=== PATIENT | male | born 1970 | race Caucasian/White ===

== ENCOUNTER 2021-03-09 09:44 | Emergency (ER) | payer OTHER, SELFPAY ==
[2021-03-09] VITALS (7 sets, daily range): BP systolic 142–171; BP diastolic 93–106; PULSE 67–79; RESP 16–20; TEMP 36.3; O2SAT 95–98; BMI 24.3
--- NOTE | 2021-03-09 | CTR_ITS ---
[facility] Final Radiology Report Call: [phone] assistance Online chat: [email or web address] Name: ODILON LAMAR Age: 50Years M Date: 03/09/2021 SSN: -- : [id number] Study: CT ABDOMEN/PELVIS W Requesting Physician: GEORGI SAL Images: 227 Add?l Studies: Provided Clinical History: Procedure Accession CTDI Vol (mGy) DLP (mGy-cm) PROCEDURE INFORMATION: Exam: CT Abdomen And Pelvis With Contrast Exam date and time: 03/09/2021 2:25 PM Age: 50 years old Clinical indication: Pain; Other: Anal TECHNIQUE: Imaging protocol: Computed tomography of the abdomen and pelvis with contrast. Radiation optimization: All CT scans at this facility use at least one of these dose optimization techniques: automated exposure control; mA and/or kV adjustment per patient size (includes targeted exams where dose is matched to clinical indication); or iterative reconstruction. Contrast material: OMNI 300; Contrast volume: 95 ml; Contrast route: INTRAVENOUS (IV); COMPARISON: No relevant prior studies available. RADIATION DOSE METRICS: Total DLP (mGy-cm): 1191.26 FINDINGS: Liver: Subcentimeter low-attenuation lesion within hepatic segment 7 , too small to characterize on CT, likely a small cyst or hemangioma. There is an additional subcentimeter foci in segment 4. Gallbladder and bile ducts: Normal. No calcified stones. No ductal dilation. Pancreas: Normal. No ductal dilation. Spleen: Normal. No splenomegaly. Adrenal glands: Normal. No mass. Kidneys and ureters: Normal. No hydronephrosis. Stomach and bowel: Unremarkable. No obstruction. No mucosal thickening. Appendix: No evidence of appendicitis. Intraperitoneal space: Unremarkable. No free air. No significant fluid collection. Vasculature: Unremarkable. No abdominal aortic aneurysm. Lymph nodes: Unremarkable. No enlarged lymph nodes. Urinary bladder: Unremarkable as visualized. Reproductive: Unremarkable as visualized. Bones/joints: Unremarkable. No acute fracture. Soft tissues: There is a 3.0 x 2.3 cm fluid collection situated within the right ischioanal fossa abutting the right gluteal cleft. IMPRESSION: 3 cm fluid collection situated within the right ischiaoanal fossa. Imaging appearance is suspicious for perianal fistula and abscess formation in the appropriate clinical context. This can be further delineated with MRI of the pelvis as clinically indicated. Thank you for allowing us to participate in the care of your patient. Dictated and Authenticated by: Rickey Jain DO 03/09/2021 3:08 PM Central Time ([place] & Bk) NIURKA
--- NOTE | 2021-03-09 13:50 | W.ED.SKABFB ---
HPI - Skin/Abscess/Foreign Bdy General: Chief complaint: Skin/Abscess/Foreign Body Stated complaint: Anal abscess Time Seen by Provider: 03/09/21 13:34 History of Present Illness: HPI narrative: 50-year-old male presents emergency room complaining of perirectal abscess. Several years ago he had similar episode in the same area as it was incised and drained by Dr. Go. This began a couple days ago he took some oral antibiotics that he had been prescribed previously does not seem to be improving he is not had any fever sweats chills or no drainage. MD complaint: abscess/boil Onset (ago): day(s) Location: buttocks (Perirectal) Severity: severe Quality: sharp and constant Pain Consistency: constant Relieving factors: none Exacerbating factors: other (Sitting\pressure) Associated symptoms: Deny arthralgias, chills, cough, fever(s), itching, myalgias, nausea, rigidity, short of breath or vomiting Treatments prior to arrival: antibiotic Review of Systems Const: Denies: fever(s) or chills ENMT: Denies: throat pain, ear or mastoid pain, nasal discharge or nasal congestion Card: Denies: chest pain, edema, dyspnea on exertion or orthopnea Resp: Denies: dyspnea, productive cough or non-productive cough GI: Denies: nausea or vomiting : Denies: flank pain, dysuria, urinary frequency or urinary urgency Skin/Breast: Denies: rash or pruritus Physical Exam Const: COMMON NORMALS: no acute distress GENERAL APPEARANCE: cooperative and comfortable ORIENTATION/CONSCIOUSNESS: Yes awake, Yes oriented to person, Yes oriented to place and Yes oriented to time HENMT: COMMON NORMALS: normocephalic, atraumatic and hearing grossly normal bilaterally HEAD & SCALP: normocephalic and atraumatic Neck/C-Spine: COMMON NORMALS: no JVD Resp: COMMON NORMALS: normal respiratory effort, No retractions, No use of accessory muscles and clear to auscultation bilaterally AUSCULTATION: clear to auscultation bilaterally Cardio: COMMON NORMALS: no JVD, regular rate, regular rhythm and No murmurs present (Cardio) RATE: regular rate RHYTHM: regular rhythm GI: COMMON NORMALS: Soft to palpation and No hepatosplenomegaly present AUSCULTATION: Yes normoactive bowel sounds PALPATION: Yes Soft to palpation, No Tenderness to palpation present (GI), No Guarding due to palpation present (GI) and Yes No hepatosplenomegaly present OTHER: Perirectal abscess at the 6 o'clock position patient will not tolerate exam. It is below the subdermal tissue but mildly palpable. There is no localized erythema or induration. Extremity: COMMON NORMALS: normal to inspection, capillary refill normal, no clubbing, cyanosis or edema, no calf tenderness and no pedal edema Neuro: SENSORIUM/ORIENTATION: Yes oriented to person, Yes oriented to place and Yes oriented to time Skin: COMMON NORMALS: no rashes or lesions noted GENERAL SKIN EXAM: no rashes or lesions noted Course Vital Signs: Vital signs: Vital Signs Temperature 97.3 F L 03/09/21 09:47 Pulse Rate 79 03/09/21 16:13 Respiratory Rate 16 03/09/21 15:52 Blood Pressure 142/93 03/09/21 16:13 Pulse Oximetry 98 03/09/21 16:13 MDM - Skin/Abscess/Foreign Bdy MDM Narrative: Medical decision making narrative: Perirectal abscess. Wearing Goeden discharge patient home he is not septic at this point was determined Augmentin given hydrocodone for pain sitz bath's talk to Dr. aOkley he will see the patient tomorrow he patient is asked to be n.p.o. anticipate taking to the OR in the morning as an outpatient for incision and drainage. The abscess itself is too deep to be addressed with local anesthetic. Discussed the patient he understands plan and is agreeable. Lab Data: Labs: Lab Results 03/09/21 03/09/21 03/09/21 Range/Units 14:07 14:07 14:40 WBC 13.3 H (4.0-10.0) 10^3/ uL RBC 4.70 (4.1-5.3) 10^6/u L Hgb 15.3 (11.7-16.6) g/dL Hct 45.2 (42.0-52.0) % MCV 96.2 H (80-94) fL MCH 32.6 (28.0-34.0) pg MCHC 33.8 (30.0-36.0) g/dL RDW 12.2 (12.1-15.1) % Plt Count 245 (130-400) 10^3/c mm MPV 11.6 H (7.4-10.4) fL Neut % (Auto) 70.6 % Lymph % (Auto) 18.1 % [place] % (Auto) 8.6 % Eos % (Auto) 1.9 % Baso % (Auto) 0.6 % Neut # (Auto) 9.37 H (1.8-7.7) 10^3/u L Lymph # (Auto) 2.4 (0.8-4.8) 10^3/u L [place] # (Auto) 1.1 H (0.2-0.9) 10^3/u L Eos # (Auto) 0.3 (0.0-0.8) 10^3/u L Baso # (Auto) 0.1 (0.0-0.1) 10^3/u L Nucleated RBC % (a uto) 0 % Nucleated RBCs # 0.0 /100WBC Sodium 137 (136-145) mmol/L Potassium 4.1 (3.5-5.1) mmol/L Chloride 101 (98-107) mmol/L Carbon Dioxide 27 (22-29) mmol/L Anion Gap 13.1 (5-19) BUN 8 (6-20) mg/dL Creatinine 0.7 (0.7-1.2) mg/dL GFR Calculation 120.4 (90-130) mL/min Glucose 87 (65-115) mg/dL Calculated Osmolal ity 282 L (285-295) mOsm/k g Calcium 8.8 (8.5-10.5) mg/dL Lipase 16 (13-60) U/L Urine Color Yellow (Yellow) Urine Appearance Clear (CLEAR) Urine pH 5 (5-7) Ur Specific Gravit y 1.020 (1.005-1.030) Urine Protein Neg (Negative) Urine Glucose (UA) Norm (Normal) Urine Ketones 1+ H (Negative) Urine Blood 2+ H (Negative) Urine Nitrate Negative (Negative) Urine Bilirubin Neg (Negative) Urine Urobilinogen Norm (Negative) mg/dL Ur Leukocyte Razia ase Negative (Negative) Urine RBC 0-4 H (0-2) /hpf Urine WBC Rare (0-5) /hpf Ur Squamous Epith Cells None (0-5) /hpf Amorphous Sediment Not Reportable Urine Bacteria 1+ H (NONE) /hpf Hyaline Casts 0-4 H /lpf Urine Mucus 1+ /hpf Discharge Plan Discharge Patient Disposition: Home Clinical Impression: Abscess, perirectal Condition: Stable Prescriptions: New Augmentin 875-125 mg tablet 1 tab PO BID Qty: 20 RF: 0 hydrocodone-acetaminophen 5-325 mg tablet 1 tab PO Q6H PRN (Reason: pain) Qty: 20 RF: 0 No Action atorvastatin 20 mg Tablet 20 mg PO DAILY RF: 0 amlodipine 5 mg Tablet 5 mg PO DAILY RF: 0 metoprolol succinate 25 mg Tablet Extended Release 24 Hr 25 mg PO DAILY RF: 0 Discharge Orders: Discharge ED (Routine); Ordered 03/09/21 Ordered By: Ranulfo Kerr Discharge Diet: Clear Liquid Discharge Activity: Limit activity as instructed Patient Instructions: Opioid Safety Activity Restrictions/Additional Instructions: His management will call to make arrangements for a consult with surgery. Coding Level of Care Code ED Reaming Machine Operator For Plastic for Chuy Fwd Exam Comprehensive
[2021-03-09] MEDS: morphine 4 mg/mL SDV 1 mL IVP ×2 (14:02→15:52)
[2021-03-09] MEDS: ondansetron 2 mg/ML SDV 2 mL 4 MG IVP ×2 (14:03→15:54)
[2021-03-09] MEDS: sodium chloride 0.9% 1,000 ML 999 ML IV (14:04)
[2021-03-09 14:22] LABS: Basophils # 0.1 10^3/uL (0.0-0.1); Basophils % 0.6 %; Eosinophils # 0.3 10^3/uL (0.0-0.8); Eosinophils % 1.9 %; Hematocrit 45.2 % (42.0-52.0); Hemoglobin 15.3 g/dL (11.7-16.6); Lymphocytes # 2.4 10^3/uL (0.8-4.8); Lymphocytes % 18.1 %; Mean Corpuscular HGB Conc 33.8 g/dL (30.0-36.0); Mean Corpuscular Hemoglobin 32.6 pg (28.0-34.0); Mean Corpuscular Volume 96.2 fL (80-94); Mean Platelet Volume 11.6 fL (7.4-10.4); Monocytes # 1.1 10^3/uL (0.2-0.9); Monocytes % 8.6 %; Neutrophils # 9.37 10^3/uL (1.8-7.7); Neutrophils % 70.6 %; Nucleated Red Blood Cells % 0 %; Platelet Count 245 10^3/cmm (130-400); Red Cell Distribution Width 12.2 % (12.1-15.1); White Blood Count 13.3 10^3/uL (4.0-10.0)
[2021-03-09] MEDS: iohexol 300 mg/mL 100 mL Btl IV (14:31)
[2021-03-09 14:35] LABS: Anion Gap 13.1 (5-19); Blood Urea Nitrogen 8 mg/dL (6-20); Calcium 8.8 mg/dL (8.5-10.5); Carbon Dioxide 27 mmol/L (22-29); Chloride 101 mmol/L (98-107); Glomerular Filtration Rate 120.4 mL/min (90-130); Glucose 87 mg/dL (65-115); Lipase 16 U/L (13-60); Osmolality Calculated 282 mOsm/kg (285-295); Potassium 4.1 mmol/L (3.5-5.1); Sodium 137 mmol/L (136-145)
[2021-03-09 15:00] LABS: Add Urine Culture? No; Add Urine Microscopic? YES; Bacteria Urine 1+ /hpf; Bilirubin Urine Neg (Negative); Blood Urine 2+ (Negative); Glucose Urine UA Norm (Normal); Hyaline Casts Urine 0-4 /lpf; Ketones Urine 1+ (Negative); Leukocyte Esterase Urine Negative (Negative); Mucus Urine 1+ /hpf; Nitrate Urine Negative (Negative); Protein Urine Neg (Negative); RBC Urine 0-4 /hpf (0-2); Urine Appearance Clear (CLEAR); Urine Color Yellow (Yellow); Urobilinogen Urine Norm (Negative); WBC Urine RARE /hpf (0-5); pH Urine 5 (5-7)
== END 2021-03-09 16:50 | disposition home or self-care (01) ==
PROVIDERS: Emergency Provider Family Medicine
DX: K61.1 Rectal abscess (principal)
CPT/HCPCS: 74177; 80048; 81001; 83690; 85025; 96361; 96374; 96375; 99284; J2270; J2405; J7030; Q9967

== ENCOUNTER 2021-03-10 11:12 | Day surgery (SDC) | payer OTHER, SELFPAY ==
[2021-03-09 17:55] VITALS: BMI 24.3
[2021-03-10] VITALS (14 sets, daily range): BP systolic 69–148; BP diastolic 38–96; PULSE 65–86; RESP 12–24; TEMP 36.3–37.7; O2SAT 94–98
[2021-03-10] MEDS: sodium chloride 0.9% 1,000 ML 30 ML IV (12:57)
--- NOTE | 2021-03-10 14:07 | ANES.PREANE2 ---
Pre-Anesthetic Assessment Pre-Anesthetic Assessment: Height/Weight: Height 1.75 m Weight 74.843 kg Temp Pulse Resp BP Pulse Ox 97.7 F 77 18 145/96 97 03/10/21 12:17 03/10/21 12:17 03/10/21 12:17 03/10/21 12:17 03/10/21 12:17 Proposed Procedure: Operation Date: 03/10/21 13:10 Proposed Procedures p Exam Under Anesthesia 28718 K61.1(Not Applicable) - Gerardo Dixon MD s INCISION AND DRAINAGE OF RIGHT PERIANAL ABSCESS 64035 K61.1(Right) - Gerardo Dixon MD Was Beta Doug taken within 24 hours: Yes Was Clonidine taken within 24 hours: N/A Social: Social History: Tobacco and No alcohol Exam: Pre-Anes Outpt Exam: alert, oriented x 3, clear to auscultation bilaterally and regular rate & rhythm Airway: Submandibular: WNL Cervical ROM: WNL MP: 2 Dentition: Full CV/HEM: CV/HEM: HTN Metabolic: Metabolic: Hyperlipidemia Anesthetic Plan: ASA status: 2 Anesthesia: General Risk of > 500 ml blood loss (7ml/kg in children): No Meds/Allergies Current Medications: Current Medications Generic Name Dose Route Start Last Admin Trade Name Freq PRN Reason Stop Dose Admin Sodium Chloride 1,000 mls @ 30 ml s/hr 03/10/21 12:00 03/10/21 12:57 Sodium Chloride 0.9% IV 03/11/21 11:59 30 mls/hr .Q24H LUC Administration Data Anesthesia Cardiac Studies: No Data to Display
[2021-03-10] MEDS: fentaNYL 50 mcg/mL INJ 2mL IVP ×2 (16:40→18:14)
--- NOTE | 2021-03-10 18:52 | P.HP_ITS ---
Providers/Chief Complaint Primary Care Provider: FELIPE Patricio Chief Complaint: INCISION AND DRAINAGE OF RIGHT PERIANAL ABSCESS History of Present Illness Chief Complaint: Bottom hurts History of present illness: Junito Granda is a 50 year old male presents with worsening right perianal discomfort started around 01 March that got worse over the past 3 days associated with chills but no fevers nausea or vomiting or any other associated symptoms patient reports about 4 years ago had an I&D at the same spot and subsequently he is familiar with the pathology, he really reports no history of other medical conditions and he never had a colonoscopy before. Patient was seen in the emergency department yesterday and was sent home on oral antibiotics and pain medications with the plan for I&D today in the OR. Patient undergone undergone a CT scan of the abdomen and pelvis; Liver: Subcentimeter low-attenuation lesion within hepatic segment 7 , too small to characterize on CT, likely a small cyst or hemangioma. There is an additional subcentimeter foci in segment 4. Gallbladder and bile ducts: Normal. No calcified stones. No ductal dilation. Pancreas: Normal. No ductal dilation. Spleen: Normal. No splenomegaly. Adrenal glands: Normal. No mass. Kidneys and ureters: Normal. No hydronephrosis. Stomach and bowel: Unremarkable. No obstruction. No mucosal thickening. Appendix: No evidence of appendicitis. Intraperitoneal space: Unremarkable. No free air. No significant fluid collection. Vasculature: Unremarkable. No abdominal aortic aneurysm. Lymph nodes: Unremarkable. No enlarged lymph nodes. Urinary bladder: Unremarkable as visualized. Reproductive: Unremarkable as visualized. Bones/joints: Unremarkable. No acute fracture. Soft tissues: There is a 3.0 x 2.3 cm fluid collection situated within the right ischioanal fossa abutting the right gluteal cleft. IMPRESSION: 3 cm fluid collection situated within the right ischiaoanal fossa. Imaging appearance is suspicious for perianal fistula and abscess formation in the appropriate clinical context. This can be further delineated with MRI of the pelvis as clinically indicated. Review of Systems General: Reports: 10 or more systems reviewed and unremarkable except in HPI and below Medications/Allergies Home Medications Medication Instructions Recorded Confirmed Last Taken Type amlodipine 5 mg PO DAILY 03/09/21 03/10/21 03/09/21 History amoxicillin-pot clavulanate 1 tab PO BID #20 tab 03/09/21 03/10/21 03/10/21 Rx [Augmentin] atorvastatin 20 mg PO DAILY 03/09/21 03/10/21 03/09/21 History hydrocodone-acetaminophen 1 tab PO Q6H PRN #20 tab 03/09/21 03/10/21 03/10/21 Rx metoprolol succinate 25 mg PO DAILY 03/09/21 03/10/21 03/09/21 History Allergies Allergy/AdvReac Type Severity Reaction Status Date / Time No Known Allergies Allergy Unverified 03/09/21 14:45 Vitals/I&O/Wt Last Vital Signs Temp 97.7 F 03/10/21 12:17 Pulse 80 03/10/21 16:30 Resp 18 03/10/21 18:14 BP 140/88 03/10/21 16:30 Pulse Ox 96 03/10/21 18:14 Weight last 48 hrs Weight 165 lb Physical Exam Narrative: EXAM NARRATIVE: Patient is conscious alert oriented X3 BMI 24.4 Head and neck examination PERRLA no masses no cervical lymphadenopathy no jaundice Cardiac examination audible S1-S2 no murmurs no gallops no arrhythmias Chest is clear bilateral,abscence of Rhonchi or wheezes,no surgical emphysema Abdomen nontender nondistended soft no organomegaly guarding or rigidity/no signs of peritonitis Extremities no cyanosis no clubbing no edema Right perianal abscess measures about 2 x 2 cm A&P Assessment and plan (1) Abscess, perirectal: After thorough history physical examination reviewing the chart and images of the CT scan of the abdomen and pelvis with my personal interpretation. I did application counselor the patient for examination under anesthesia with incision and drainage of right perianal abscess. Indications, risks, benefits and alternatives all discussed with the patient did agree to proceed accordingly understanding the potential risk of partial or complete incontinence. And may require future potential surgical interventions and may develop perianal fistula if already did not exist. So patient will benefit from down the road colonoscopy. Informed consent per chart Status: Acute Attestations Medical Necessity Statement*: Outpatient Time Spent in Patient Care: (>than 50% of time spent in counselling and/or direct pt care on unit) . Coding Level of Care Code Acute Animal Assisted Therapist for Chg Fwd Diagnoses Abscess, perirectal K61.1
[2021-03-10] MEDS: acetaminophen 1,000 MG/100 ML PIGGYBACK 400 MG IV (19:04)
[2021-03-10] MEDS: piperacillin-tazobactam 3.375 GM in sodium chloride 0.9% (plus) 50 ML IV (19:13)
[2021-03-10] MEDS: lidocaine 2% INJ 20 mL XX (19:31)
--- NOTE | 2021-03-10 19:43 | PM.OP ---
Operative Report Date of procedure: March 10, 2021 Pre-op Diagnosis: Right perianal abscess Post-op diagnosis: same Post-op Diagnosis: No evidence of perianal fistulae Post-op Findings: Right perianal abscess more towards the posterior midline Tunneling of the abscess cavity 2 x 2 x 4 cm towards the anal canal Procedure Done: Examination under anesthesia and incision and drainage of right perianal abscess. Sharp debridement of the abscess cavity Implants: 1 inch Nu Gauze for packing Specimens removed/disposition: Swabs for cultures and sensitivities Surgeon: Gerardo Dixon Maple Syrup Maker: manager technology Danita Circulating nurse Trudy Anesthesia: General (LMA lead fabricator Ofelia) Estimated blood loss (mL): 10 Condition: stable Disposition: same day Brief History: Symptomatic perianal abscess. Full H&P and informed consent per chart. Procedure: Incision and drainage of right perianal abscess Patient was identified in the holding area and was taken back to the operating room and the correct site and side were marked by me, patient was first placed in supine position got intubated by anesthesia, prophylactic IV antibiotics were given per protocol,Time-out was done verifying the patient's name/date of /planned procedure and destination after the procedure, all were in agreement. Patient was then placed in the left lateral position were all pressure points were padded, Prep and drape was done thereafter under the usual sterile technique followed by that digital rectal examination showed no masses were appreciated or bleeding. Yet there was fullness posteriorly and just right to the midline there was induration ,consistent with abscess. Anoscope was then introduced, there was no evidence of masses or fistula tracts. A stab incision was created by 15 blade knife, about 5 mL pus were revealed, swabs for aerobes and anaerobes were done, also tissues were sent for cultures and sensitivity, followed by that a cruciate incision was completed by trimming all the edges, leaving behind a circular opening for the abscess cavity were appropriate further sharp debridement was done for indurated subcutaneous infected tissues , all loculations were broken down by the examining finger , thorough irrigation and hemostasis was achieved, placement of large piece of Surgicel at the bed of the abscess cavity. Noticed a component of tunneling anteriorly towards the anal canal 2 x 2x4 Right perianal abscess;Abscess cavity measures;all the way to the muscle layer Packing of the wound with wet-to-dry using 1 inch Nu Gauze impregnated and lidocaine 2%,followed by ABD.A surgical pants was then placed to hold the dressing in place. Count was completed at the end of the procedure, patient was then allowed to wait and was taken to the recovery room in stable condition. Count of instruments, needles and sponges were completed at the end of the procedure. I was present for the whole entire procedure
--- NOTE | 2021-03-10 20:24 | ANE.PACU2 ---
Inpatient post-anesthesia follow up: Airway intact: Yes Vital signs: Temperature 99.8 F Pulse Rate 68 Respiratory Rate 19 Blood Pressure 78/45 Pulse Oximetry 98 Oxygen Delivery Me thod Simple Mask Oxygen Flow Rate 8 Fraction of Inspir ed Oxygen Hydration adequate: Yes Nausea and vomiting: No Pain level: 2 Mental status: Baseline
--- NOTE | 2021-03-10 20:45 | SUR.PHASEI ---
1940 PT TO PACU ON LT SIDE HOB ELEVATED AT 30 DEGREES ORAL AIR[address] IN PL[address], GOOD RESP NOTED BP LOW IN UPPER 70'S IV W/O BY PUPPET ENGINEER AT BEDSIDE, HOB DOWN FLAT , 1949 BP STILL LOW PT IN [place], DR MONCADA AT BEDSIDE PT CARE ASSUMED BY DR MONCADA AND ESDRAS ROMERO RN , ORAL AIRWAY IN PLACE PT DOES NOT AWAKE TO VOICE OR TOUGH, GOOD RESP EFFORT NOTED. [address] MONCADA AT BEDSIDE HOB FLAT NOW, PT STILL TRAN NOT AWAKE 2014 PT AWAKES ORAL AIRWAY OUT BY Indigo ROMERO RN, PT ALERT TALKATIVE SITTING UP IN BED REQUESTS SOMETHING TO DRINK AND EAT. PT CARE ASSUMED BY Indigo RENO RN. 2024 PT TO OPS AWAKE ALERT TAKING SIPS OF DR JEFFERS, PT TALKATIVE WITH FAMILY IN ROOM, PT CARE ASSUMED BY WHITLEY GARNICA.
== END 2021-03-10 21:00 | disposition home or self-care (01) ==
PROVIDERS: PCP Nurse Practitioner Family; Visit Provider Surgery
PROC: (CPT 11043; principal; 2021-03-10 13:00)
PROC: (CPT 46040; 2021-03-10 13:00)
DX: K61.0 Anal abscess (principal); I10 Essential (primary) hypertension; E78.5 Hyperlipidemia, unspecified
CPT/HCPCS: 11043; 87070; 87075; 87077; 87186; 87205; 96365; J2250; J2405; J2543; J2704; J3010; J7030

== ENCOUNTER 2024-10-09 14:12 | Outpatient (CLI) | payer OTHER, SELFPAY | END 2024-10-09 14:13 | disposition home or self-care (01) | LOC: SLEEP 14:17 | PROVIDERS: PCP Nurse Practitioner Family; Visit Provider Specialist | DX: G47.33 Obstructive sleep apnea (adult) (pediatric) (principal); G47.36 Sleep related hypoventilation in conditions classified elsewhere | CPT/HCPCS: G0399 ==